=== PATIENT | male | born 1950 | race Caucasian/White ===

== ENCOUNTER 2018-07-24 07:47 | Outpatient (REF) | payer MEDICARE, OTHER, SELFPAY ==
[2018-07-24 13:56] LABS: BUN 19 mg/dL (7-18); CREATININE 0.88 mg/dL (0.70-1.30); Calcium 8.7 mg/dL (8.5-10.1); Glucose 107 mg/dL (70-100)
[2018-07-24 13:57] LABS: ALT 24 U/L (12-78); AST 18 U/L (15-37); Albumin 3.8 g/dL (3.4-5.0); Alkaline Phosphatase 82 U/L (46-116); Anion Gap 8.4 mmol/L (3-11); Bilirubin, Total 0.5 mg/dL (0.2-1.0); CO2 27.6 mmol/L (21.0-32.0); Chloride 103 mmol/L (98-107); Cholesterol 192 mg/dL (50-200); HDL Cholesterol 53 mg/dL (40-60); LDL CHOLESTEROL 131 mg/dL (<100); Sodium 139 mmol/L (136-145); Total Protein 7.1 g/dL (6.4-8.2); Triglyceride 71 mg/dL (30-150)
[2018-07-25 09:46] LABS: PSA, Screening 3.6 ng/ml (0-4.5)
== END 2018-07-24 08:07 ==
LOC: NCHCN 07:47
PROVIDERS: PCP Specialist/Technologist Athletic Trainer; Visit Provider Nurse Practitioner
DX: R73.9 Hyperglycemia, unspecified (principal); E78.89 Other lipoprotein metabolism disorders; Z12.5 Encounter for screening for malignant neoplasm of prostate; R97.20 Elevated prostate specific antigen [PSA]
CPT/HCPCS: 80053; 80061; 83721; 84153

== ENCOUNTER 2019-12-04 12:30 | Outpatient (REF) | payer MEDICARE, OTHER, SELFPAY ==
[2019-12-04 20:58] LABS: Hemoglobin A1C 5.8 % (<5.7)
[2019-12-04 21:17] LABS: ALT 19 U/L (16-63); AST 15 U/L (15-37); Albumin 4.1 g/dL (3.4-5.0); Alkaline Phosphatase 86 U/L (46-116); BUN 19 mg/dL (7-18); Bilirubin, Total 0.3 mg/dL (0.2-1.0); CREATININE 0.86 mg/dL (0.70-1.30); Calcium 8.9 mg/dL (8.5-10.1); Calculated LDL 127 mg/dL (<100); Chloride 104 mmol/L (98-107); Cholesterol 197 mg/dL (<200); Glucose 125 mg/dL (74-106); HDL Cholesterol 51 mg/dL (40-60); Potassium 4.4 mmol/L (3.5-5.1); Sodium 140 mmol/L (136-145); Total Protein 7.5 g/dL (6.4-8.2); Triglyceride 96 mg/dL (<150)
[2019-12-05 18:18] LABS: PSA, Screening 8.6 ng/mL (0.0-6.5)
== END 2019-12-04 12:50 ==
LOC: NCHCN 12:30
PROVIDERS: PCP Specialist/Technologist Athletic Trainer; Visit Provider Nurse Practitioner
DX: R73.09 Other abnormal glucose (principal); R97.20 Elevated prostate specific antigen [PSA]; Z12.5 Encounter for screening for malignant neoplasm of prostate; E78.89 Other lipoprotein metabolism disorders
CPT/HCPCS: 80053; 80061; 84153; 83036

== ENCOUNTER → 2020-03-24 10:58 | Outpatient (BNVA) | payer MEDICARE, OTHER, SELFPAY | PROVIDERS: PCP Specialist/Technologist Athletic Trainer; Referring Provider Specialist/Technologist Athletic Trainer; Visit Provider Nurse Practitioner Gerontology | DX: N40.1 Benign prostatic hyperplasia with lower urinary tract symptoms (principal); R39.198 Other difficulties with micturition; R97.20 Elevated prostate specific antigen [PSA] | CPT/HCPCS: 81003; 99204 ==

== ENCOUNTER 2020-03-24 15:06 | Outpatient (REF) | payer MEDICARE, OTHER, SELFPAY | END 2020-03-24 15:26 | LOC: LBN 15:06 | PROVIDERS: PCP Specialist/Technologist Athletic Trainer; Visit Provider Nurse Practitioner Gerontology | DX: R97.20 Elevated prostate specific antigen [PSA] (principal) | CPT/HCPCS: 84154 ==

== ENCOUNTER 2020-03-25 03:18 | Outpatient (CLI) | payer MEDICARE, OTHER, SELFPAY ==
--- NOTE | 2020-03-25 11:50 | DI.RAD_ITS ---
EXAM: XR KNEE RT 3V AP,LAT,ULISES CLINICAL HISTORY: RT KNEE PAIN,M25.569. TECHNIQUE: 2D digital imaging was performed. COMPARISON: No exams were available for comparison FINDINGS: There is no evidence of fracture nor prominent joint effusion. Moderate degenerative changes are not ed in the medial and patello femoral compartments. Bone density is age-appropriate. No osseous lesi ons evident. IMPRESSION: DATA REPOSITORY: RADIATION DOSE DELIVERED:
--- NOTE | 2020-03-25 11:50 | DI.RAD_ITS ---
EXAM: XR HIP RT COMPLETE AP PELVIS CLINICAL HISTORY: RT HIP PAIN,M25.551. TECHNIQUE: 2D digital imaging was performed. COMPARISON: No exams were available for comparison FINDINGS: No evidence of pelvic or hip fractures. Advanced osteoarthritic narrowing of the right hip joint is noted, most prominent superiorly in the joint space. There also marginal osteophytes in the femoral head level. Degenerative subarticular cysts also noted. Minimal degenerative changes noted in the opposite hip. IMPRESSION: Advanced osteoarthritic degenerative changes in the right hip. No fracture evident. DATA REPOSITORY: RADIATION DOSE DELIVERED:
--- NOTE | 2020-03-25 12:00 | DI.RAD_ITS ---
EXAM: XR LUMBAR SPINE COMPLETE CLINICAL HISTORY: BACK PAIN WITH RADICULOPATHY,M54.16. TECHNIQUE: 2D digital imaging was performed. COMPARISON: No exams were available for comparison FINDINGS: There is no evidence of fracture or listhesis. There is advanced disc space narrowing at both L4-5 a nd L5-S1 levels. Vacuum phenomenon seen within the L4-5 disc space. Other disc spaces above this le irvin exhibit normal height. Significant degenerative changes are noted in the facet joints of the low er 3 levels. No scoliosis. No osseous lesions. Sacroiliac joints unremarkable. Degenerative haile es in the right hip are noted. IMPRESSION: Advanced chronic degenerative disc disease L4-5 and L5-S1. Facet arthropathy. Probable spinal canal stenosis. Advanced osteoarthritis right hip. DATA REPOSITORY: RADIATION DOSE DELIVERED:
== END 2020-03-25 03:38 ==
PROVIDERS: PCP Specialist/Technologist Athletic Trainer; Visit Provider Nurse Practitioner
DX: M25.561 Pain in right knee; M16.11 Unilateral primary osteoarthritis, right hip; M47.26 Other spondylosis with radiculopathy, lumbar region
CPT/HCPCS: 73562; 72110; 73502

== ENCOUNTER → 2020-05-18 10:44 | Outpatient (BNVA) | payer MEDICARE, OTHER, SELFPAY | PROVIDERS: PCP Specialist/Technologist Athletic Trainer; Referring Provider Specialist/Technologist Athletic Trainer; Visit Provider Student in an Organized Health Care Education/Training Program | DX: M16.11 Unilateral primary osteoarthritis, right hip (principal); M54.16 Radiculopathy, lumbar region | CPT/HCPCS: 99214 ==

== ENCOUNTER 2020-06-29 11:00 | Outpatient (CLI) | payer MEDICARE, OTHER, SELFPAY ==
--- NOTE | 2020-06-29 10:45 | DI.RAD_ITS ---
EXAM: XR PELVIS AP CLINICAL HISTORY: preop planning. TECHNIQUE: 2D digital imaging was performed. COMPARISON: CR XR HIP RT COMPLETE AP PELVIS from 03/25/2020 CR XR LUMBAR SPINE COMPLETE from 03/25/2020 FINDINGS: There are no fractures. Again noted is advanced osteoarthritic degenerative change in the right hip with [id number] joint space narrowing in superior aspect of the joint space. The opposite-left hip continues to appear unremarkable. No osseous lesions. IMPRESSION: DATA REPOSITORY: RADIATION DOSE DELIVERED:
== END 2020-06-29 11:01 | disposition home or self-care (01) ==
LOC: DIORS 11:01
PROVIDERS: PCP Specialist/Technologist Athletic Trainer; Referring Provider Specialist/Technologist Athletic Trainer; Visit Provider Physician Assistant
DX: Z01.818 Encounter for other preprocedural examination (principal); M16.11 Unilateral primary osteoarthritis, right hip
CPT/HCPCS: 72170

== ENCOUNTER 2020-07-06 02:42 | Outpatient (CLI) | payer MEDICARE, OTHER, SELFPAY ==
[2020-07-06 11:31] LABS: Source Nasal/Nares
[2020-07-06 16:11] LABS: COVID-19 PCR Negative (Negative)
== END 2020-07-06 02:43 | disposition home or self-care (01) ==
LOC: LBO 02:42
PROVIDERS: PCP Nurse Practitioner; Visit Provider Student in an Organized Health Care Education/Training Program
DX: Z20.822 Contact with and (suspected) exposure to COVID-19 (principal); Z01.818 Encounter for other preprocedural examination
CPT/HCPCS: 87635

== ENCOUNTER 2020-07-06 03:29 | Outpatient (CLI) | payer MEDICARE, OTHER, SELFPAY ==
[2020-07-06 10:26] LABS: HCT 39.6 % (40.0-50.0); HGB 13.5 g/dL (13.5-17.5); MCH 30.5 pg (27.0-33.0); MCHC 34.1 % (32.0-36.0); MCV 89.6 fL (80-95); MPV 9.2 fL (8.0-11.0); Platelet Count 236 10^3/uL (130-400); RBC 4.42 10^6/uL (4.36-5.78); RDW 11.8 % (11.8-14.1); RDW-SD 38.1 fL; WBC 5.14 10^3/uL (4.4-10.8)
[2020-07-06 11:16] LABS: Anion Gap 7.8 mmol/L (3-11); BUN 21 mg/dL (7-18); CO2 28.2 mmol/L (21.0-32.0); CREATININE 0.9 mg/dL (0.70-1.30); Calcium 8.9 mg/dL (8.5-10.1); Chloride 105 mmol/L (98-107); Glucose 118 mg/dL (74-106); Potassium 4.3 mmol/L (3.5-5.1); Sodium 141 mmol/L (136-145)
== END 2020-07-06 03:30 | disposition home or self-care (01) ==
LOC: LBO 03:29
PROVIDERS: PCP Nurse Practitioner; Visit Provider Student in an Organized Health Care Education/Training Program
DX: M25.551 Pain in right hip (principal); M16.11 Unilateral primary osteoarthritis, right hip; Z01.818 Encounter for other preprocedural examination; Z01.812 Encounter for preprocedural laboratory examination
CPT/HCPCS: 36415; 80048; 85027; 86850; 86900; 86901; 87635

== ENCOUNTER 2020-07-07 06:09 | Day surgery (SDC) | payer MEDICARE, OTHER, SELFPAY ==
[2020-07-07] VITALS (9 sets, daily range): BP systolic 101–148; BP diastolic 58–88; PULSE 52–80; RESP 12–18; TEMP 36.2–36.8; O2SAT 97–100
[2020-07-07] MEDS: Lactated Ringers 1,000 ML 80 ML IV (06:50)
[2020-07-07] MEDS: Celecoxib 200 MG CAP 400 MG PO (07:01)
[2020-07-07] MEDS: Acetaminophen 500 MG TAB 1000 MG PO (07:01)
--- NOTE | 2020-07-07 07:18 | PDOC.DSDIS_ITS ---
Discharge Plan Disposition Patient Disposition: HOME Condition: Good Discharge Details Reason For Visit: Right Hip DJD Attending Provider: Kp Levy Primary Care Provider: Maia Draper Home Meds and New Rx's Prescriptions: New celecoxib 200 mg capsule 200 mg PO BID PRN (Reason: pain) Qty: 60 RF: 1 acetaminophen 500 mg tablet 1,000 mg PO Q8H PRN (Reason: pain) Qty: 90 RF: 3 tramadol 50 mg tablet 50 mg PO Q6H PRNQty: 6 RF: 0 Continued aspirin 325 MG tablet 1 tab PO DAILY RF: 0 tamsulosin 0.4 MG capsule 0.4 mg PO DAILY RF: 0 finasteride 5 MG tablet 5 mg PO HS RF: 0 Discontinued naproxen sodium [Aleve] 220 MG tablet 220 mg PO PRN PRNRF: 0 acetaminophen [Tylenol Arthritis] 650 mg Tablet Extended Release 650 mg PO Q8H PRNRF: 0 Discharge Instructions Additional Instructions: Total Hip Discharge Instructions Activity: The most important activity is to walk. You should try to take short walks a few times a day. You have no restrictions on movement or positioning, but do not try to force what you do. You will find some stiffness and weakness with hip flexion (lifting your knee). Do not try to strengthen this too early, continue to practice walking and stairs and this will come. - Outpatient physical therapy can be helpful to help return you to a normal gait and improve your flexibility and strength. This can start around 2 weeks. For some patients, it?s not necessary. Usually this is determined at the time of discharge or at the first post-operative visit. - You should wear the JASS hose on both legs for 2 weeks. Dressing: Keep the surgical dressing in place for at least one week. After the first week it may be removed and replace with light gauze and tape or nothing. It may get wet after 3 days but avoid soaking the dressing. If it gets wet, just lightly pat dry. It is important to always keep some gauze between skin folds, especially when you are sitting. Spend some time with the wound exposed when you are lying flat as the incision does wrinkle onto itself. Medications: - You should take Tylenol and an anti-inflammatory Celebrex as your primary pain control medications. If the Celebrex is too expensive or not covered, please call the office for another alternative (Advil/Ibuprofen or Naproxen/Aleve). - You have been prescribed a stronger pain medication Tramadol for breakthrough pain, take as needed as prescribed. - You will be taking Aspirin 325mg daily (your usual dosing) for DVT prevention unless instructed otherwise. - If you have constipation you should take Colace or Miralax (both [id number]). It takes most people 3-4 days to have a bowel movement. Follow-up: 2 weeks If you have any acute concerns or questions, please do not hesitate to contact the office at [phone]. You may contact Dr. Levy with any questions after hours through the hospital at [phone] or on his cell phone at [phone]. Referrals: Kp Levy MD [ [facility] STAFF PHYSICIAN] - Activity:: Activity as Tolerated Shower/Bathe:: 72 hours Diet:: As Tolerated Discharge Orders Discharge Orders: Discharge Order (Routine); Ordered 07/07/20 Ordered By: Kp Levy DS: Diagnosis Discharge Diagnosis (1) Degenerative joint disease of right hip: Status: Chronic
[2020-07-07] MEDS: ceFAZolin 2 GM/50 ML BAG IVPB (08:16)
[2020-07-07] MEDS: Ketorolac 30 MG/ML VIAL (09:00)
[2020-07-07] MEDS: Bupivacaine 0.25% Pres-Free 30 ML VIAL (09:00)
--- NOTE | 2020-07-07 09:28 | DI.RAD_ITS ---
EXAM: XR HIP RT IN OR CLINICAL HISTORY: right total hip replacement TECHNIQUE: 2D and realtime digital imaging was performed. COMPARISON: No exams were available for comparison FINDINGS: C-arm fluoroscopy was utilized by Dr. Levy during placement of right hip prosthesis. Hard copies show femoral and acetabular components in good position. IMPRESSION: RADIATION DOSE DELIVERED: higinio Latif=3.57 mGy
--- NOTE | 2020-07-07 09:51 | W.PM.OP ---
Date of service: 07/07/20 Time of Service: 09:21 Operative Note Operative Note DATE OF PROCEDURE: 07/07/20 PRE-OP DIAGNOSIS: Right Hip Osteoarthritis POST-OP DIAGNOSIS: same PROCEDURE: Right Anterior Total Hip Arthroplasty with Intraoperative Navigation SURGEON: Kp Levy DIRECTOR AMBULATORY: Jacey Espinoza ANESTHESIA TYPE: Spinal Refer to Anesthesia Record ESTIMATED BLOOD LOSS: 200 PATHOLOGY: none sent TOURNIQUET TIME: 0 COMPLICATIONS: None Patient was transported to: PACU Patient's condition: stable Implants: 1. Depuy [place] Acetabular Component, 56mm 2. Depuy Acetabular Liner, [id number] 3. Depuy Corail Standard Collared Femoral Stem, Size 14 4. Depuy Altrx Ceramic Femoral Head, Size 36+5mm Indications: I have seen Art in clinic for symptoms of hip arthritis, confirmed with radiographic findings. Art has exhausted nonoperative methods and was having significant limitations in daily function and desired better function and less pain. I discussed the technical details of a hip replacement. I explained the risks of the procedure to include, but not limited to, bleeding, infection, pain, stiffness, fracture, damage to nerves and vessels, damage to muscles and tendons, loosening, instability, leg length inequality, need for repeat procedure, blood clot and cardiopulmonary demise. Despite these risks, Art elected to proceed. Findings: There was significant signs of arthritis throughout the hip. There were large osteophytes about the femoral neck and the floor of the acetabulum Procedure Description: Art was greeted in the preoperative holding area where the correct side was identified and marked. The consent was reviewed with the patient and signed. The history and physical was updated. All questions were answered. He was taken back to the operating room. A spinal anesthestic was then administered. The feet were wrapped with cast padding and Coban and then placed into the boot liners and then into the boots. Care was taken to protect the skin and make sure the heels were fully down and the boots were stable. The patient was then positioned onto the HANA table. Both legs were held in a neutral position. SCDs were applied. The patient was then slid down onto a peroneal post. Prophylactic antibiotics in the form of Cefazolin were administered. 1g of Tranxemic Acid was given intravenously within 30 minutes of incision. The right leg was then prepped with Chloraprep and draped in a standard fashion. A second prep with Chloraprep was performed prior to placement of a shower-curtain type drape with Iodine impregnated skin protection. A timeout to confirm correct identity, side and site, procedure, allergies, anesthesia, and medical concerns was performed. An obliquely oriented incision was made starting lateral to the ASIS and running distal over the Tensor Fascia Linda (TFL) muscle belly toward the fibular head, approximately 10cm. The skin and soft tissue was dissected sharply, through Francoise?s fascia, and to the fascia of the TFL. With the fascia and superior border of the IT band identified, the fascia was incised with a new knife just above any perforators from the IT band. The TFL muscle belly was bluntly dissected away from the fascia and moved laterally. The fat between TFL and rectus was identified to ensure the dissection was not within the TFL. Blunt dissection created space between abductors and the capsule and retractor was placed over the lateral femoral neck. The fibers of the rectus femoris tendon were identified and these were freed from the anterior capsule. A second cobra retractor was placed around the medial femoral neck. The TFL was further retracted laterally to show the deep fascia. Careful dissection through this layer identified three main crossing vessels of the lateral femoral circumflex. These were cauterized in multiple locations and then cut without any noticeable bleeding. The TFL was further released bluntly from the deep fascia to expose anterior hip capsule and fat The Josh orthopaedic retractor was then placed beneath the TFL and against sartorius and medial soft tissues to protect and retract the soft tissues. A T-capsulotomy was then performed starting at the superior lateral acetabulum and moving distally to the intertrochanteric ridge. These capsular flaps were tagged with a No. 1 Ethibond and elevated from within. The capsular flaps were released to the shoulder of the lateral neck and to the lesser trochanter to give excellent visualization of the proximal femur. A neck osteotomy was performed using an oscillating saw based on preoperative templates. This cut started in the shoulder and of the lateral neck and exited medially. The saw was at all times directed medially to avoid injury to the greater trochanter. Gross traction was applied to the leg and the osteotomy opened. The femoral head was removed with a corkscrew, making sure to protect the TFL on its exit. Traction was released after head removal. This was measured on the back table to determine the starting reamer size. Portions of the rectus obscuring visualization were minimally elevated off the superior acetabulum. An anterior retractor was placed over the anterior wall between capsule and labrum and attached to the Gripper retraction system. The femur was rotated to 90 degrees and medial capsule was fully released until the lesser trochanter was palpable and visible; the femur was returned to 30 degrees. A posterior retractor was placed similarly between capsule and labrum. This provided excellent visualization. The contents of the cotyloid fossa were removed with electrocautery and the labrum was removed with a knife. There was a notable floor osteophyte. There was significant chondromalacia of the superior acetabulum. Acetabular reaming began with a 52mm reamer. This first reaming was directed anterior to posterior and medial to get down to the true floor. This was inspected and reamed until the true floor was reached. The anterior retractor was then released and entry and exit was provided by traction on the capsular flaps. I then reamed sequentially up to a 56mm reamer where good fit was obtained. The larger reamers were oriented based on anatomical reference of the anterior and lateral hein to ensure proper abduction and anteversion. Positioning and size was confirmed with the fluoroscopy. A 56mm Depuy [place] acetabular component was selected. The acetabulum was reamed around the periphery with the selected acetabular size to prevent a rim fit. The deep tissues were irrigated. The acetabular component was then impacted in a position of about 40-45 degrees of abduction and 15-20 degrees of anteversion, using the patient?s anatomy as the ultimate landmark. Fluoroscopy was used to confirm this. There was excellent drafter structural of the acetabular component and the inserting handle was removed. The acetabular liner, Depuy [id number] polyethylene liner, was inserted and lined up with the tines of the acetabular component. There was no soft tissue interposition. The liner was then impacted into position and confirmed to be well-seated. A portion of the gaetano-articular cocktail was then injected around the acetabulum into the capsule and periosteum. This cocktail consisted of 50cc of 0.25% Bupivicaine and 20cc of Exparel and 30mg of Ketorolac. The leg was rotated to 120 degrees. Any remaining medial capsule was released until the lesser trochanter was easily palpable. A retractor was placed medially. The lateral capsule was further released into the shoulder to allow access to the greater trochanter. A Dia retractor was placed over the greater trochanter which allowed the trochanter to flip in front of the capsule for excellent exposure. The leg was brought down into maximal extension and 20 degrees of adduction while ensuring there was no impingement on the acetabulum. Any remnant capsule within the trochanter was released. Piriformis and obturator externis were identified and protected. There was excellent access to the proximal femur. The lateral neck remnant was removed with a rongeur. A blunt canal probe was used to identify the canal and trajectory for later broaching. A box osteotome initiated the broach course. A small curved rasp and a curved curette were used to work laterally. Broaching then began with a size 8 Corail broach. This was inserted manually around the trochanter and into the canal before mallet blows. The broach was seated to a few millimeters below the cut level based on the neck cut and the preoperative template. Sequential broaching was continued with the [employer]se pneumatic broaching device until a tight fit was obtained with good rotational control of the femur. A trial standard neck was inserted along with a +5 trial head. The leg was brought out of extension and adduction and then reduced with traction and internal rotation. The leg was stable anteriorly in a position of 30 degrees of extension and 90 degrees of external rotation. Fluoroscopy was used to ensure there was no fracture and the stem was seated well. Leg lengths were checked with an AP pelvis and pelvic reference points. BostInno navigation system was used to confirm appropriate positioning and leg length and offset. This confirmed lengthening of 3mm and slight decrease in total offset, as planned. Once content with the desired offset and leg lengths, the leg was brought back into extension, external rotation and adduction. The periosteum and surrounding tissue was injected with remaining portion of the gaetano-articular cocktail. The proximal femur was irrigated as well as the deep tissues. The Depuy Corail standard collared stem, size 14, was then manually inserted into the proximal femur making sure to control rotation. It was then malleted into position with light blows, giving breaks to allow bone expansion and decrease risk of fracture. The selected Depuy Altrx Ceramic Head, size 36+5mm, was then placed onto the clean and dry trunnion and secured with impaction onto the tapered fit. The leg was brought back out of extension and adduction and reduced with traction and internal rotation. Stability was confirmed with no shuck at 90 degrees of external rotation and 30 degrees of extension. No impingement through range of motion arc. Final x-ray images were obtained with fluoroscopy to confirm adequate positioning and no intraoperative fracture. The deep tissues were thoroughly irrigated with Irrisept chlorhexadine solution. The capsule was then reapproximated with the previously placed Ethibond sutures. The TFL fascia was finally closed with a No. 2 Stratafix, barbed suture. Deep tissues were then reapproximated with 0 Vicryl and a running 2-0 Vicryl. The skin was closed with a running 4-0 Monocryl in a subcuticular fashion. This was reinforced with skin glue. A Mepilex silver dressing was applied. At the end of the case, all counts were correct. Art was transferred to the hospital bed without difficulty and suffering no apparent complication. Art has a good prognosis. Physical therapy will start today and without restrictions, weight-bearing as tolerated. Aspirin 325mg daily will be used for DVT prophylaxis.
--- NOTE | 2020-07-07 12:38 | IN_ITS ---
Date of service: 07/07/20 Time of Service: 12:34 PT Notes Visit Reasons: Right Hip DJD Physical Therapy Inpatient Initial Evaluation Date: 07/07/2020 Referring Doctor: Kp Levy MD PT Orders: PT CONSULT: Status post Ortho surgery Precautions: Fall. Standard. WBAT on right LE with AD. Patient Profile/Admitting Diagnosis: Art is a 69-year-old male with degenerative joint disease of the right hip and is status post right total hip arthroplasty on postoperative day 0. PMHX: Medical History (Updated 06/29/20 @ 11:08 by Jacey Espinoza) Back pain with radiculopathy Basal cell carcinoma BPH (benign prostatic hyperplasia) Degenerative joint disease of right hip Elevated hemoglobin A1c Elevated PSA Right hip pain Surgical History (Updated 06/29/20 @ 11:08 by Jacey Espinoza) Status post carpal tunnel release of both wrists Status post de Quervain's release surgery Bilateral Social History/Home Situation: Lives with in a private home with 2 steps to enter with rails. Independent with all aspects of ADLs prior to surgery. No AD nor adaptive equipment needed previously. Equipment Owned/DME: Front-wheeled walker, bilateral axillary crutches Subjective: Reports numbness and bilateral gluteal areas and the perineal area and some tingling in both feet. Denies pain at rest but reported 1 out of 10 pain on the right hip with ambulation activity. Short-lived dizziness upon sitting up and standing up that resolves with activity. Objective: General Observation: Mepilex Ag over surgical incision. IV access in right UE. BIlateral TEDS on B legs. Mental Status: Alert and oriented as to person, place, time, and purpose. Able to pay attention, focus, and respond appropriately. Pain: 0/10 in right hip at rest, 1/10 with weight bearing activity Vital Signs: Within normal limits as closely monitored by nurse Sahni ROM: Right Upper Extremity: Shoulder Flexion WFL. Shoulder abduction WFL. Shoulder ER/IR WFL. Elbow flexion WFL. Forearm pronation/supination WFL. Wrist flexion WFL. Opening and closing of hand WFL. Left Upper Extremity: Shoulder Flexion WFL. Shoulder abduction WFL. Shoulder ER/IR WFL. Elbow flexion WFL. Forearm pronation/supination WFL. Wrist flexion WFL. Opening and closing of hand WFL. Right Lower Extremity: Hip flexion WFL. Hip abduction WFL. Hip ER/IR WFL. Knee flexion WFL. Knee extension. Ankle dorsiflexion/eversion WFL. Ankle plantarflexion/inversion WFL. Left Lower Extremity: Hip flexion WFL. Hip abduction WFL. Hip ER/IR WFL. Knee flexion WFL. Knee extension. Ankle dorsiflexion WFL. Ankle plantarflexion WFL. Strength: Right Upper Extremity: Shoulder flexors 5/5. Shoulder abductors 5/5. Shoulder ER 5/5/ Shoulder IR 5/5. Forearm pronators 5/5. Forearm supinators 5/5. Elbow flexors 5/5. Elbow extensors 5/5. Rug Setter Velvet strong. Left Upper Extremity: Shoulder flexors 5/5. Shoulder abductors 5/5. Shoulder ER 5/5/ Shoulder IR 5/5. Forearm pronators 5/5. Forearm supinators 5/5. Elbow flexors 5/5. Elbow extensors 5/5. Rug Setter Velvet strong. Right Lower Extremity: Hip flexors 4/5. Hip abductors 4/5. Hip external rotators 4/5. Hip internal rotators 4/5. Knee flexors 5/5. Knee extensors 5/5. Ankle dorsiflexors/evertors 5/5. Ankle plantarflexors/invertors 5/5. Left Lower Extremity: Hip flexors 5/5. Hip abductors 5/5. Hip external rotators 5/5. HIp internal rotators 5/5. Knee flexors 5/5. Knee extensors 5/5. Ankle dorsiflexors/evertors 5/5. Ankle plantarflexors/invertors 5/5. Bed Mobility/Transfers: Rolling independent independent Supine to sit independent Sit to supine independent Sit to stand contact-guard assist Stand to sit contact-guard assist Bed to chair contact-guard assist Gait: Level surface ambulation of 200 feet using front wheeled walker with contact-guard assist and step through gait pattern. Myriam decreased. Reported 1/10 pain in the right hip. Balance: Static Sitting: Normal Dynamic Sitting: Normal Static Standing: Good Dynamic Standing: Fair Special Tests: Mobility Limitations Standardized Measure [facility] 6 clicks Basic Mobility Inpatient Short Form: Raw Score: 2311% deficit CMS Score: 11% deficit Informed Consent/Education: Patient instructed in purpose of PT consult and plan of care. Assessment: The use of a front wheeled walker for all level surface ambulation in order to maximize independence and reduce fall risk at home. He will have the support of his as he recovers from the surgery. He may benefit from outpatient PT services in order to facilitate return to independent community ambulation without an assistive device. Patient presents with clinical signs and symptoms consistent with current/admitting diagnoses that have resulted to mobility limitations, gait instability, generalized weakness, and impairment of motor control as demonstrated by the following impairment level findings: 1. Decreased strength to right hip major muscle groups 2. Impaired standing balance 3. Impaired activity tolerance Impairments are contributing to the following functional limitations: 1. Inability to safely ambulate without assistive device 2. Increase completion time for mobility ADL performance 3. Increased fall risk 4. Inability to negotiate steps alone safely Patient is assessed as a right complexity based on the following: History: 69-year-old male with past medical history as indicated above Examination: Demonstrable impairment in strength, balance, and mobility level with underlying impairments and functional limitations as exhibited above as well as deficit score of 11% utilizing the [facility] Mobility Inpatient Short Form Presentation: Evolving Decision Makin moderate complexity Goals: N/A. PT evaluation only and 1 treatment session only for functional mobility training and HEP instruction. Plan of Care/Treatment Plan: N/A. PT evaluation only and 1 treatment session only for functional mobility training and HEP instruction. DISCHARGE RECOMMENDATIONS: Home when medically cleared by orthopedic surgeon. Outpatient PT services for functional mobility progression. Will benefit from the use of a front wheel walker to reduce fall risk at home. TREATMENT CODE/TIME: 01312 x 20 minutes, 08749 x 26 minutes beginning at 12:38 PM. Thank you for the opportunity to participate in the care of this patient. Wanda Serrano PT, DPT, CLT [facility] [place], [place]
== END 2020-07-07 14:25 | disposition home or self-care (01) ==
PROVIDERS: PCP Nurse Practitioner; Visit Provider Student in an Organized Health Care Education/Training Program
PROC: (CPT 27130; principal; 2020-07-07 08:00)
DX: M16.11 Unilateral primary osteoarthritis, right hip (principal); Z96.641 Presence of right artificial hip joint; K21.9 Gastro-esophageal reflux disease without esophagitis
CPT/HCPCS: 27130; 20985; C1776; 97167; 73501; 97530; J0690; J1885; J2250; J2405

== ENCOUNTER 2020-07-23 13:27 | Outpatient (CLI) | payer MEDICARE, OTHER, SELFPAY ==
--- NOTE | 2020-07-23 09:30 | DI.RAD_ITS ---
Exam(s) XR HIP RT COMPLETE AP PELVIS EXAM: XR HIP RT COMPLETE AP PELVIS CLINICAL HISTORY: 1ST POST OP R NGA TECHNIQUE: COMPARISON: CR XR PELVIS AP from 06/29/2020 FINDINGS: Two views were obtained. There is a total hip joint replacement position on the right. The componen ts appear well seated. No other significant bony abnormality seen apart from mild degenerative haile es of the left. IMPRESSION: RADIATION DOSE DELIVERED: Total DLP
== END 2020-07-23 13:28 | disposition home or self-care (01) ==
LOC: DIORS 13:27
PROVIDERS: PCP Nurse Practitioner; Referring Provider Nurse Practitioner; Visit Provider Physician Assistant Surgical
DX: Z47.1 Aftercare following joint replacement surgery (principal); Z96.641 Presence of right artificial hip joint; M16.12 Unilateral primary osteoarthritis, left hip
CPT/HCPCS: 73502

== ENCOUNTER → 2020-08-14 10:28 | Outpatient (BNVA) | payer MEDICARE, OTHER, SELFPAY | PROVIDERS: PCP Nurse Practitioner; Referring Provider Nurse Practitioner; Visit Provider Student in an Organized Health Care Education/Training Program | DX: Z47.1 Aftercare following joint replacement surgery (principal); Z96.641 Presence of right artificial hip joint ==

== ENCOUNTER 2021-07-08 10:32 | Outpatient (CLI) | payer MEDICARE, OTHER, SELFPAY ==
--- NOTE | 2021-07-08 09:45 | DI.RAD_ITS ---
Exam(s) XR HIP RT AP LAT ONLY EXAM: XR HIP RT AP LAT ONLY CLINICAL HISTORY: annual f/u R NGA. TECHNIQUE: 2D digital imaging was performed. COMPARISON: CR XR HIP RT COMPLETE AP PELVIS from 07/23/2020 FINDINGS: Two views There is continued satisfactory position alignment of the components of the right hip prosthesis. No fracture or loosening evident. IMPRESSION: DATA REPOSITORY: RADIATION DOSE DELIVERED:
== END 2021-07-08 10:33 | disposition home or self-care (01) ==
LOC: DIORS 10:33
PROVIDERS: PCP Nurse Practitioner; Referring Provider Nurse Practitioner; Visit Provider Student in an Organized Health Care Education/Training Program
DX: Z96.641 Presence of right artificial hip joint (principal)
CPT/HCPCS: 99213; 73502

== ENCOUNTER 2021-07-09 02:10 | Outpatient (CLI) | payer MEDICARE, OTHER, SELFPAY ==
[2021-07-09 21:58] LABS: PSA, Diagnostic 3.3 ng/mL (<=6.5)
== END 2021-07-09 02:11 | disposition home or self-care (01) ==
LOC: LBO 02:10
PROVIDERS: PCP Nurse Practitioner; Visit Provider Urology
DX: R97.20 Elevated prostate specific antigen [PSA] (principal)
CPT/HCPCS: 36415; 84153

== ENCOUNTER → 2021-07-14 10:16 | Outpatient (BNVA) | payer MEDICARE, OTHER, SELFPAY | PROVIDERS: PCP Nurse Practitioner; Referring Provider Specialist/Technologist Athletic Trainer; Visit Provider Nurse Practitioner Gerontology | DX: N40.0 Benign prostatic hyperplasia without lower urinary tract symptoms (principal); R97.20 Elevated prostate specific antigen [PSA] | CPT/HCPCS: 99214 ==

== ENCOUNTER 2021-10-05 08:31 | Emergency (ER) | payer MEDICARE, OTHER, SELFPAY ==
[2021-10-05] VITALS (7 sets, daily range): BP systolic 131–146; BP diastolic 63–84; PULSE 54–68; RESP 11–18; TEMP 37; O2SAT 97–99
--- NOTE | 2021-10-05 08:35 | W.ED.GENAD ---
Discharge Plan Disposition Patient Disposition: HOME Condition: Stable Discharge Details Clinical Impression: Biliary colic, Epigastric abdominal pain Primary Care Provider: Maia Draper ED Provider: Stacy Martínez Home Meds and New Rx's Prescriptions: New sucralfate [Carafate] 1 gram tablet 1 gm PO QACHS 7 Days Qty: 28 0RF sucralfate [Carafate] 1 gram tablet 1 gm PO QACHS Qty: 14 0RF Continued tamsulosin 0.4 mg capsule 0.4 mg PO DAILY Qty: 90 3RF finasteride 5 mg tablet 5 mg PO HS Qty: 90 3RF sildenafil [Viagra] 25 mg tablet 25 mg PO DAILY MDD 100mg PRN (Reason: sexual activity) Qty: 10 6RF Rx Instructions: administer 30 minutes to 4 hours before activity aspirin 325 MG tablet 1 tab PO Label Comments: 06/25/15 Pt states not taking at this time due to surgery. pt will resume taking on an every other day basis. PG Rx Instructions: Pt takes every other day. acetaminophen 500 mg tablet 1,000 mg PO Q8H PRN (Reason: pain) Qty: 90 3RF Discharge Instructions Instructions: Abdominal Pain (ED), Epigastric Pain (ED) Additional Instructions: Your lab work today is reassuring and shows no evidence of acute concerning or significant findings. Your ultrasound and CAT scan today revealed that you have gallstones. These may be the source of your pain, however your symptoms could still be due to GERD, gastritis, or a stomach ulcer. You have been placed on care management list for follow-up with general surgery for reevaluation and consideration for referral for outpatient endoscopy and/or colonoscopy. Take [id number] Pepcid once daily for the next 2 weeks. Prescriptions for Carafate have been sent electronically to [facility] in addition to your pharmacy mail delivery service. Return to the emergency department with any worsening or new concerning symptoms. Referrals: Luann Osman MD [ [facility] STAFF PHYSICIAN] - Discharge Data Discharge Date/Time-TO BE ENTERED AT DEPARTURE: 10/05/21 13:58 Discharge Physician: Stacy Martínez Medical Decision Making 0804 -- 71-year-old male with a history of daily alcohol use presents with epigastric and right upper quadrant abdominal pain since last night. Patient appears comfortable and nontoxic. His lungs are clear. There are no pulsatile masses. He is tender in the epigastrium and right upper quadrant. Suspect most likely biliary colic, cholecystitis, GERD, alcoholic gastritis. Also consider PUD, pancreatitis, AAA. He is hemodynamically stable so do not see an urgent indication for CT imaging for AAA. Will refer for screening labs, abdominal ultrasound, chest x-ray and give a dose of Dilaudid. Will hold on GI cocktail and Carafate pending ultrasound results. 1010 -- ultrasound notes significant mount of gallstones but no evidence of cholecystitis. Aorta normal. Will refer for CT imaging to assess aorta considering patient's age. 1230 -- CT imaging reviewed and notes cholelithiasis and slight gallbladder wall thickening but no pericholecystic fluid or other evidence of cholecystitis and CBD appears normal. Patient still complains of intermittent epigastric pain. We will give a GI cocktail and Carafate and reassess. 1330 -- Patient reassessed and his symptoms are resolved and he feels comfortable going home. As he remains hemodynamically stable and has reassuring labs with normal white blood cell count and liver enzymes, will plan for discharge to home and follow-up with his primary care doctor and general surgery. Case discussed with Dr. Osman who recommends Carafate and PPI or H2 adi and can follow up outpatient for further discussion regarding scheduled cholecystectomy if desired or indicated. Prescriptions for Carafate sent electronically to his local pharmacy and mail delivery service per his request. Patient placed on surgery follow-up list for reevaluation and for referral for upper endoscopy if indicated. Advised on possible triggers for GERD including alcohol use and to attempt elimination diet. Usual and customary return precautions given prior to discharge. Medical Records Medical records reviewed: Yes I reviewed the patient's medical records. Imaging Data Radiologic Study: Radiologist's impression: US ABDOMEN EXAM:? US ABDOMEN CLINICAL HISTORY:? epigastric/RUQ pain, assess for AAA, cholecystitis TECHNIQUE:? Ultrasound of complete upper abdomen performed using standard protocol. COMPARISON:? US? from 12/13/2010 FINDINGS: There is no ascites evident. LIVER: There are no hepatic lesions evident nor obvious dilatation of intrahepatic ducts. GALLBLADDER/BILIARY: .? Numerous small less than 1 cm gallstones in the gallbladder lumen.? The gallbladder is not edematous.? No pericholecystic fluid. The common hepatic duct isslightly dilated, measuring 6.9mm at the level of roman hepatis. PANCREAS: There is no evidence of pancreatic mass nor dilatation of the pancreatic duct. SPLEEN: The spleen is not enlarged and there are no intrasplenic lesions evident. KIDNEYS:Kidneys exhibit normal size with no evidence of solid mass, calculus, nor hydronephrosis. No cortical cysts evident. ABDOMINAL AORTA: There is no evidence of abdominal aortic aneurysm. IVC: Normal diameter where visualized. IMPRESSION: 1.? Cholelithiasis.? There are multiple shadowing gallstones in the gallbladder lumen.? CBD diameter is upper normal. 2.? No other significant ultrasound findings in the upper abdomen. 3.? There is no ascites. CT ABDOMEN ? PELVIS CTA EXAM: ? CT ABDOMEN ? PELVIS CTA CLINICAL HISTORY: ? epigastric abd pain, rad to back. ? TECHNIQUE:? Imaging Protocol: Axial computed tomography images with coronal and sagittal reformatted images were created and reviewed CONTRAST MATERIAL:? Intravenous: Omnipaque 350 Contrast volume:100 ml Oral: None COMPARISON:? CR XR PELVIS AP from 06/29/2020 FINDINGS: Visualized lung bases are clear and there are no pleural effusions. ABDOMINAL AORTA: There is no evidence of abdominal aortic aneurysm.? No dissection.? Celiac and superior mesenteric arteries are patent.? Renal arteries are patent.? Inferior mesenteric artery is patent.? Aortic bifurcation is patent as are the aortoiliac segments.? Common and external iliac arteries as well as common femoral arteries are patent.? Both internal iliac arteries are patent. ABDOMEN: There is no ascites LIVER: There are no focal hepatic lesions nor dilatation of intrahepatic ducts.? GALLBLADDER/BILIARY: There are multiple gallstones in the gallbladder lumen average size 5 millimeters.? There are no calculi seen in the CBD which exhibits upper normal diameter.? Gallbladder wall is minimally thickened but not grossly edematous. PANCREAS: No evidence of pancreatic mass nor dilatation of the pancreatic duct.? SPLEEN: Spleen is not enlarged.? There are no intrasplenic lesions. Splenic and portal veins are patent. ADRENALS: There are no significant adrenal masses. KIDNEYS: No cysts evident. No calculi nor hydronephrosis. No solid renal masses. ABDOMINAL AORTA: The abdominal aorta is not enlarged.? No dissection LYMPH NODES: There is no retroperitoneal nor para-aortic adenopathy. No obvious mesenteric masses. ABDOMINAL WALL: No evidence of significant anterior abdominal wall hernia.? GI: There is no evidence of bowel obstruction, free air, nor abscess. PELVIS: LYMPH NODES: There is no intrapelvic nor inguinal adenopathy. GI: No evidence of appendicitis.No evidence of sigmoid diverticulitis. URINARY BLADDER: No calculi nor masses evident REPRODUCTIVE: Prostate mildly enlarged. OSSEOUS: Right hip prosthesis.? Benign-appearing bone lesion in the right iliac bone. IMPRESSION: 1. Cholelithiasis.? Gallbladder contains numerous 5 millimeter calculi.? There is slight gallbladder wall thickening.? No prominent pericholecystic fluid.? No obvious calculi in the CBD and CBD diameters upper normal.? There is no dilatation of intrahepatic ducts. 2. No evidence of abdominal aortic aneurysm nor dissection (as per request) 3. Visualized lung bases are clear. XR CHEST 2V PA ? LATERAL EXAM:? XR CHEST 2V PA ? LATERAL CLINICAL HISTORY: ? epigastric pain, r/o acute disease. ? TECHNIQUE:? 2D digital imaging was performed. COMPARISON:? No exams were available for comparison FINDINGS: 2 views: Heart size is normal.? The mediastinum is not widened. Lungs are hyperinflated but there are no infiltrates nor pleural effusions.? No pneumothorax.? No pulmonary edema. IMPRESSION: COPD but no acute pulmonary findings. Lab Data Lab results reviewed: Yes I reviewed the patient's lab results. Labs: Laboratory Tests Range/Units 10/05/21 10/05/21 09:00 09:00 WBC (4.4-10.8) 10^3/uL 7.66 RBC (4.36-5.78) 10^6/uL 4.67 Hgb (13.5-17.5) g/dL 14.0 Hct (40.0-50.0) % 41.3 MCV (80-95) fL 88 MCH (27.0-33.0) pg 30.0 MCHC (32.0-36.0) % 33.9 RDW (11.8-14.1) % 11.9 Plt Count (130-400) 10^3/uL 214 MPV (8.0-11.0) fL 9.2 Immature Gran % 0.3 Neutrophils % 83.3 Lymphocytes % 10.7 Monocytes % 5.1 Eosinophils % 0.3 Basophils % 0.3 Nucleated RBC % (0.0-0.3) % 0.0 Absolute Neutrophils (1.2-6.7) 10^3/uL 6.39 Absolute Lymphocytes (1.2-3.4) 10^3/uL 0.82 L Absolute Monocytes (0.1-0.8) 10^3/uL 0.39 Absolute Eosinophils (0.0-0.7) 10^3/uL 0.02 Absolute Basophils (0.0-0.2) 10^3/uL 0.02 Sodium (136-145) mmol/L 138 Potassium (3.5-5.1) mmol/L 3.9 Chloride (98-107) mmol/L 103 Carbon Dioxide (21.0-32.0) mmol/L 26.0 Anion Gap (3-11) mmol/L 9.0 BUN (7-18) mg/dL 19 H Creatinine (0.70-1.30) mg/dL 0.9 Estimated GFR/1.73 m2 (mL/min/1.73m2) >= 60.00 Glucose (74-106) mg/dL 145 H Calcium (8.5-10.1) mg/dL 8.8 Magnesium (1.8-2.4) mg/dL 1.7 L Total Bilirubin (0.2-1.0) mg/dL 0.5 AST (15-37) U/L 17 ALT (16-63) U/L 23 Alkaline Phosphatase (46-116) U/L 72 Troponin I (<or=60) ng/L < 50 Total Protein (6.4-8.2) g/dL 7.4 Albumin (3.4-5.0) g/dL 3.9 Lipase (73-393) U/L 86 HPI General Mode of arrival: ambulatory. Date/Time Provider Initiated Documentation: 10/05/21 08:32. Limitations to Documentation: no limitations. Information obtained by: patient. HPI Narrative: Patient is a 71-year-old male with a history of daily alcohol use who presents with a complaint of epigastric and right upper quadrant abdominal pain that awoke him from sleep at 1130 last night. Patient describes the pain as a constant dull ache with some radiation to his back. He states he ate bologna and salami last night before bed. He admits to nausea but denies any fever, vomiting, chest pain, shortness of breath, coughing, diarrhea or urinary symptoms. He states he took 2 doses of 10 mg Zantac and Tums since last night without relief. He states the pain is currently 6/10. He denies any radiation of pain to his chest, jaw or arms. Related Data Home Medications Medication Instructions Recorded Confirmed aspirin 325 mg tablet 1 tab PO 05/26/14 07/08/21 acetaminophen 500 mg tablet 1,000 mg PO Q8H PRN pain #90 tabs 07/07/20 10/05/21 finasteride 5 mg tablet 5 mg PO HS #90 tabs 07/14/21 10/05/21 tamsulosin 0.4 mg capsule 0.4 mg PO DAILY #90 caps 07/14/21 10/05/21 sildenafil 25 mg tablet (Viagra) 25 mg PO DAILY PRN sexual activity 07/26/21 10/05/21 #10 tabs sucralfate 1 gram tablet (Carafate) 1 gm PO QACHS #14 tabs 10/05/21 sucralfate 1 gram tablet (Carafate) 1 gm PO QACHS 7 days #28 tabs 10/05/21 Previous Rx's Medication Instructions Recorded acetaminophen 500 mg tablet 1,000 mg PO Q8H PRN pain #90 tabs 07/07/20 finasteride 5 mg tablet 5 mg PO HS #90 tabs 07/14/21 tamsulosin 0.4 mg capsule 0.4 mg PO DAILY #90 caps 07/14/21 sildenafil 25 mg tablet (Viagra) 25 mg PO DAILY PRN sexual activity 07/26/21 #10 tabs sucralfate 1 gram tablet (Carafate) 1 gm PO QACHS #14 tabs 10/05/21 sucralfate 1 gram tablet (Carafate) 1 gm PO QACHS 7 days #28 tabs 10/05/21 Allergies Allergy/AdvReac Type Severity Reaction Status Date / Time No Known Allergies Allergy Verified 07/14/21 10:43 General Stated Complaint: Abd Prob CHADWICK: 3 Review of Systems All systems reviewed & are unremarkable except as noted in HPI and below Constitutional Constitutional: Reports as per HPI, Denies chills, Denies excessive sweating, Denies fatigue and Denies fever(s) Eyes Eyes: Denies blurry vision ENT Ears, Nose, Mouth, and Throat: Denies dizziness, Denies sore throat and Denies throat swelling Cardiovascular Cardiovascular: Denies chest pain and Denies dyspnea Respiratory Respiratory: Denies cough and Denies dyspnea Gastrointestinal Gastrointestinal: Reports abdominal pain, Denies diarrhea, Reports nausea and Denies vomiting Genitourinary Genitourinary: Denies hematuria and Denies dysuria Musculoskeletal Musculoskeletal: Denies back pain and Denies numbness Integumentary/Breasts Skin/Breast: Denies lesions and Denies rash Neurologic Neurologic: Denies behavioral changes, Denies confusion, Denies dizziness, Denies localized weakness and Denies numbness Psychiatric Psychiatric: Denies behavioral changes, Denies confusion and Denies depression Endocrine Endocrine: Denies excessive sweating and Denies fatigue Hematologic/Lymphatic Hematologic/Lymphatic: Denies easy bruising and Denies lymphadenopathy Allergic/Immunologic Allergic/Immunologic: Denies throat swelling PFSH All Active Problems (Updated 10/05/21 @ 13:47 by Stacy Martínez DO) Biliary colic (Acute) Epigastric abdominal pain (Acute) Medical History (Updated 10/05/21 @ 13:47 by Stacy Martínez DO) Back pain with radiculopathy Basal cell carcinoma BPH (benign prostatic hyperplasia) Elevated hemoglobin A1c Elevated PSA Right hip pain Surgical History (Updated 07/08/21 @ 10:19 by JOSE Patel) 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) Hx of tonsillectomy Status post carpal tunnel release of both wrists Status post de Quervain's release surgery Bilateral Social History Smoking/Tobacco Use Status: Never Smoking risk assessment performed?: Yes Alcohol Intake: current Alcohol Intake frequency: 3 or more drinks per day Alcohol type: beer Drug use: Never Substance use type: does not use 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; owned a [employer] Do you feel safe at home: Yes Do you feel safe in your relationship?: Yes Exam Const General: cooperative and no acute distress Orientation: alert, awake and oriented x3 HENMT Head: normal to inspection Ears: hearing grossly normal bilaterally, external ears normal and TM's normal bilaterally General nose exam: external nose normal Face and sinus: normal facial exam Mouth: oral mucosae normal Teeth and gingiva: dentition normal Throat: posterior oropharynx normal Eyes General: appearance normal, both eyes and all related structures Eyelids: eyelids normal Pupils: PERRL EOM: EOM intact bilaterally Neck Neck: normal visual inspection Lymphatic: no lymphadenopathy noted Chest Chest: normal inspection of the chest Resp Effort & Inspection: normal respiratory effort and able to speak in complete sentences Auscultation: clear to auscultation bilaterally Cardio Rate: regular rate Rhythm: regular rhythm GI Inspection: normal to inspection Palpation: soft, not firm, no guarding, no hepatosplenomegaly, no masses and tender in the RUQ Auscultation: hypoactive bowel sounds Back/Spine/Pelvis Back: no CVA tenderness Skin General skin exam: no rashes or lesions noted Neuro General: patient alert and patient awake Cognition: normal cognition Speech: speech normal Gait: normal gait Motor: muscle tone normal throughout Sensory Exam: no sensory deficits noted Extrem General: normal to inspection, full ROM and capillary refill normal Psych Appearance: grossly normal Mental Status: mental status grossly normal Speech and Movement: speech and movement normal Affect: normal affect Thought Process: normal
--- NOTE | 2021-10-05 08:45 | RT.EKG_ITS ---
APPROVED REPORT Exam: Resting ECG Reason for Exam: chest pain Patient Location: E HR:60 bpm ECG Measurements Heart Rate 60 AXIS MI 226 P 58 QRSd 84 QRS 19 QT 403 T 52 QTc 405 Conclusion Sinus rhythm...normal P axis, V-rate 60- 99 Prolonged MI interval...MI >220, V-rate 50- 90. Sinus. Normal axis. No STEMI. I have reviewed and interpreted ECG and agree with software generated interpretation.
[2021-10-05 09:05] LABS: Abs Immature Grans 0.02 10^3/uL (0.0-0.06); Absolute Basophil Count 0.02 10^3/uL (0.0-0.2); Absolute Eosinophil Count 0.02 10^3/uL (0.0-0.7); Absolute Lymphocyte Count 0.82 10^3/uL (1.2-3.4); Absolute Monocyte Count 0.39 10^3/uL (0.1-0.8); Absolute Neutrophil Count 6.39 10^3/uL (1.2-6.7); Basophils % 0.3; Eosinophils % 0.3; HCT 41.3 % (40.0-50.0); Immature Grans % 0.3; Lymphocytes % 10.7; MCHC 33.9 % (32.0-36.0); MCV 88 fL (80-95); MPV 9.2 fL (8.0-11.0); Monocytes % 5.1; Neutrophils % 83.3; Platelet Count 214 10^3/uL (130-400); RBC 4.67 10^6/uL (4.36-5.78); RDW 11.9 % (11.8-14.1); RDW-SD 38.5 fL; WBC 7.66 10^3/uL (4.4-10.8)
--- NOTE | 2021-10-05 09:15 | DI.US_ITS ---
Exam(s) US ABDOMEN EXAM: US ABDOMEN CLINICAL HISTORY: epigastric/RUQ pain, assess for AAA, cholecystitis TECHNIQUE: Ultrasound of complete upper abdomen performed using standard protocol. COMPARISON: US from 12/13/2010 FINDINGS: There is no ascites evident. LIVER: There are no hepatic lesions evident nor obvious dilatation of intrahepatic ducts. GALLBLADDER/BILIARY: . Numerous small less than 1 cm gallstones in the gallbladder lumen. The gallb ladder is not edematous. No pericholecystic fluid. The common hepatic duct isslightly dilated, measuring 6.9mm at the level of roman hepatis. PANCREAS: There is no evidence of pancreatic mass nor dilatation of the pancreatic duct. SPLEEN: The spleen is not enlarged and there are no intrasplenic lesions evident. KIDNEYS:Kidneys exhibit normal size with no evidence of solid mass, calculus, nor hydronephrosis. No cortical cysts evident. ABDOMINAL AORTA: There is no evidence of abdominal aortic aneurysm. IVC: Normal diameter where visualized. IMPRESSION: 1. Cholelithiasis. There are multiple shadowing gallstones in the gallbladder lumen. CBD diameter is upper normal. 2. No other significant ultrasound findings in the upper abdomen. 3. There is no ascites. DATA REPOSITORY:
--- NOTE | 2021-10-05 09:15 | DI.RAD_ITS ---
Exam(s) XR CHEST 2V PA LATERAL EXAM: XR CHEST 2V PA LATERAL CLINICAL HISTORY: epigastric pain, r/o acute disease. TECHNIQUE: 2D digital imaging was performed. COMPARISON: No exams were available for comparison FINDINGS: 2 views: Heart size is normal. The mediastinum is not widened. Lungs are hyperinflated but there are no infiltrates nor pleural effusions. No pneumothorax. No pul monary edema. IMPRESSION: COPD but no acute pulmonary findings. DATA REPOSITORY: RADIATION DOSE DELIVERED:
[2021-10-05 09:23] LABS: ALT 23 U/L (16-63); AST 17 U/L (15-37); Albumin 3.9 g/dL (3.4-5.0); Alkaline Phosphatase 72 U/L (46-116); BUN 19 mg/dL (7-18); Bilirubin, Total 0.5 mg/dL (0.2-1.0); CREATININE 0.9 mg/dL (0.70-1.30); Calcium 8.8 mg/dL (8.5-10.1); Chloride 103 mmol/L (98-107); Glucose 145 mg/dL (74-106); Lipase 86 U/L (73-393); Magnesium 1.7 mg/dL (1.8-2.4); Potassium 3.9 mmol/L (3.5-5.1); Sodium 138 mmol/L (136-145); Total Protein 7.4 g/dL (6.4-8.2); Troponin I < 50 ng/L (<or=60)
[2021-10-05] MEDS: HYDROmorphone 2 MG/ML VIAL 0.5 MG IVP (09:45)
[2021-10-05] MEDS: Normal Saline 500 ML IV (09:46)
--- NOTE | 2021-10-05 10:00 | DI.CT_ITS ---
Exam(s) CT ABDOMEN PELVIS CTA EXAM: CT ABDOMEN PELVIS CTA CLINICAL HISTORY: epigastric abd pain, rad to back. TECHNIQUE: Imaging Protocol: Axial computed tomography images with coronal and sagittal reformatted images were created and reviewed CONTRAST MATERIAL: Intravenous: Omnipaque 350 Contrast volume:100 ml Oral: None COMPARISON: CR XR PELVIS AP from 06/29/2020 FINDINGS: Visualized lung bases are clear and there are no pleural effusions. ABDOMINAL AORTA: There is no evidence of abdominal aortic aneurysm. No dissection. Celiac and super ior mesenteric arteries are patent. Renal arteries are patent. Inferior mesenteric artery is patent . Aortic bifurcation is patent as are the aortoiliac segments. Common and external iliac arteries a s well as common femoral arteries are patent. Both internal iliac arteries are patent. ABDOMEN: There is no ascites LIVER: There are no focal hepatic lesions nor dilatation of intrahepatic ducts. GALLBLADDER/BILIARY: There are multiple gallstones in the gallbladder lumen average size 5 millimeter s. There are no calculi seen in the CBD which exhibits upper normal diameter. Gallbladder wall is m inimally thickened but not grossly edematous. PANCREAS: No evidence of pancreatic mass nor dilatation of the pancreatic duct. SPLEEN: Spleen is not enlarged. There are no intrasplenic lesions. Splenic and portal veins are vargas nt. ADRENALS: There are no significant adrenal masses. KIDNEYS: No cysts evident. No calculi nor hydronephrosis. No solid renal masses. ABDOMINAL AORTA: The abdominal aorta is not enlarged. No dissection LYMPH NODES: There is no retroperitoneal nor para-aortic adenopathy. No obvious mesenteric masses. ABDOMINAL WALL: No evidence of significant anterior abdominal wall hernia. GI: There is no evidence of bowel obstruction, free air, nor abscess. PELVIS: LYMPH NODES: There is no intrapelvic nor inguinal adenopathy. GI: No evidence of appendicitis.No evidence of sigmoid diverticulitis. URINARY BLADDER: No calculi nor masses evident REPRODUCTIVE: Prostate mildly enlarged. OSSEOUS: Right hip prosthesis. Benign-appearing bone lesion in the right iliac bone. IMPRESSION: 1. Cholelithiasis. Gallbladder contains numerous 5 millimeter calculi. There is slight gallbladder wall thickening. No prominent pericholecystic fluid. No obvious calculi in the CBD and CBD diameter s upper normal. There is no dilatation of intrahepatic ducts. 2. No evidence of abdominal aortic aneurysm nor dissection (as per request) 3. Visualized lung bases are clear. 4. RADIATION DOSE DELIVERED: 1,012.83mGy.cm Total DLP DATA REPOSITORY: All CT scans at this facility are submitted to the National Radiology Data Registry (NRDR) Dose Index Registry (DIR) with the [employer] ([employer]). RADIATION OPTIMIZATION: All CT scans at this facility use at least one of these dose optimization te chniques: automated exposure control; mA and/or kV adjustment per patient size (includes targeted exa ms where dose is matched to clinical indication); or iterative reconstruction.
[2021-10-05] MEDS: Omnipaque 350 MG/ML 100 ML BTL IJ (10:41)
[2021-10-05] MEDS: MAGNESIUM SULFATE 1 GM/100 ML BAG IVPB (10:59)
[2021-10-05] MEDS: Ondansetron 4 MG/2 ML VIAL IVP (11:18)
[2021-10-05] MEDS: Normal Saline 250 ML 500 ML IV (11:52)
[2021-10-05] MEDS: ACETAMINOPHEN 1,000 MG/100 ML BTL 400 MG IVPB (12:48)
[2021-10-05] MEDS: Sucralfate 1 GM TAB PO (12:55)
--- NOTE | 2021-10-05 15:05 | NUR.NOTE ---
Nursing Note: Referral faxed to [facility] General Surgery for gallstones, in 2 weeks.
== END 2021-10-05 13:58 | disposition home or self-care (01) ==
PROVIDERS: Emergency Provider Physician Assistant; PCP Nurse Practitioner
DX: K80.50 Calculus of bile duct without cholangitis or cholecystitis without obstruction (principal); R10.13 Epigastric pain; R10.11 Right upper quadrant pain; R07.9 Chest pain, unspecified; Z72.89 Other problems related to lifestyle
CPT/HCPCS: 80053; 83690; 93005; 96361; 96365; 96375; 99285; 71046; 74174; 76700; 83735; 84484; 85025; 93010; J0131; J2405; J3475; J3490

== ENCOUNTER 2022-07-22 01:55 | Outpatient (CLI) | payer MEDICARE, SELFPAY ==
[2022-07-22 21:11] LABS: PSA, Diagnostic 4.3 ng/mL (<=6.5)
== END 2022-07-22 01:56 | disposition home or self-care (01) ==
PROVIDERS: PCP Nurse Practitioner; Visit Provider Nurse Practitioner Gerontology
DX: N40.0 Benign prostatic hyperplasia without lower urinary tract symptoms (principal); R97.20 Elevated prostate specific antigen [PSA]
CPT/HCPCS: 36415; 84153

== ENCOUNTER → 2022-07-25 10:19 | Outpatient (BNVA) | payer MEDICARE, SELFPAY | PROVIDERS: PCP Nurse Practitioner; Visit Provider Nurse Practitioner Gerontology | DX: N40.0 Benign prostatic hyperplasia without lower urinary tract symptoms (principal); R97.20 Elevated prostate specific antigen [PSA] | CPT/HCPCS: 99214 ==

== ENCOUNTER 2023-07-28 01:44 | Outpatient (CLI) | payer MEDICARE, SELFPAY ==
[2023-07-28 18:56] LABS: PSA, Diagnostic 3.5 ng/mL (<=6.5)
== END 2023-07-28 01:45 | disposition home or self-care (01) ==
LOC: LBO 01:44
PROVIDERS: PCP Nurse Practitioner Family; Visit Provider Nurse Practitioner Gerontology
DX: N40.0 Benign prostatic hyperplasia without lower urinary tract symptoms (principal); R97.20 Elevated prostate specific antigen [PSA]
CPT/HCPCS: 36415; 84153

== ENCOUNTER → 2023-07-31 10:17 | Outpatient (BNVA) | payer MEDICARE, SELFPAY | PROVIDERS: PCP Nurse Practitioner Family; Visit Provider Nurse Practitioner Gerontology | DX: N40.0 Benign prostatic hyperplasia without lower urinary tract symptoms (principal); R97.20 Elevated prostate specific antigen [PSA] | CPT/HCPCS: 51798; 99213 ==

== ENCOUNTER 2024-08-06 02:40 | Outpatient (CLI) | payer MEDICARE, SELFPAY ==
[2024-08-06 11:04] LABS: Hemoglobin A1C 5.9 % (<5.7)
[2024-08-06 19:21] LABS: PSA, Diagnostic 3.3 ng/mL (<=6.5)
== END 2024-08-06 02:41 | disposition home or self-care (01) ==
PROVIDERS: Nurse Practitioner Gerontology; PCP Nurse Practitioner Family; Visit Provider Physician Assistant
DX: R97.20 Elevated prostate specific antigen [PSA] (principal); N40.0 Benign prostatic hyperplasia without lower urinary tract symptoms; R73.03 Prediabetes
CPT/HCPCS: 36415; 83036; 84153

== ENCOUNTER → 2024-08-13 10:00 | Outpatient (BNVA) | payer MEDICARE, SELFPAY | PROVIDERS: PCP Nurse Practitioner Family; Visit Provider Nurse Practitioner Gerontology | DX: N40.0 Benign prostatic hyperplasia without lower urinary tract symptoms (principal); R97.20 Elevated prostate specific antigen [PSA]; N52.9 Male erectile dysfunction, unspecified | CPT/HCPCS: 99214 ==

== ENCOUNTER 2024-08-26 10:49 | Outpatient (CLI) | payer MEDICARE, SELFPAY ==
--- NOTE | 2024-08-26 10:45 | DI.RAD_ITS ---
Exam(s) XR HIP LT COMPLETE AP PELVIS EXAM: XR HIP LT COMPLETE AP PELVIS CLINICAL HISTORY: L hip pain. TECHNIQUE: 2D digital imaging was performed. COMPARISON: CR XR HIP RT AP LAT ONLY from 07/08/2021 FINDINGS: 3 views No evidence of fracture nor dislocation or abnormal soft tissue densities. There are mild degenerati ve changes in the left hip joint. No degenerative subarticular cysts. Prosthesis is noted in the op posite-right hip. IMPRESSION: Mild degenerative changes in the left hip. DATA REPOSITORY: RADIATION DOSE DELIVERED:
== END 2024-08-26 10:50 | disposition home or self-care (01) ==
LOC: DIORS 10:49
PROVIDERS: PCP Physician Assistant; Referring Provider Physician Assistant; Visit Provider Student in an Organized Health Care Education/Training Program
DX: M25.552 Pain in left hip (principal); Z96.641 Presence of right artificial hip joint
CPT/HCPCS: 99213; 73502